=== PATIENT | female | born 1965 | race Asian ===

== ENCOUNTER 2016-10-05 09:44 | Emergency (ER) | payer BC ==
[~2016-10-05] VITALS: Ht 175.3 cm; Wt 134.7 kg
[~2016-10-05 09:44] MED LIST: ASPIRIN ADULT L81 MG OR; BENICAR HCT1 TA1 PO; CELE200C2 PO; CLARITIN10 MG PO; HCTZ PO; HYDR25TA15 PO; HYDR5TAB9 PO; METO100T37 PO; PERCOCET1 TA1 PO; TRAM50TA PO; TRIBENZO1 PO; ZANTAC 75 PO
[2016-10-05 09:54] VITALS: BP 181/91; TEMP 98.3
[2016-10-05] MEDS ORDERED: TRIBENZO1 PO (09:57)
[2016-10-05] MEDS ORDERED: TRAM50TA PO (09:57)
[2016-10-05] MEDS ORDERED: LIPITOR10 MG PO (09:58)
[2016-10-05] MEDS ORDERED: DIPH25CA90 PO (09:59)
== END 2016-10-05 10:30 | disposition home or self-care (01) ==
LOC: ED 09:44
DX: T78.40XA Allergy, unspecified, initial encounter (principal)
CPT/HCPCS: 96372; 99282; J1100

== ENCOUNTER 2020-02-27 10:04 | Outpatient (CLI) | payer BC ==
[~2020-02-27 10:04] MED LIST changes: +DIPH25CA90 PO; +LIPITOR10 MG PO
== END 2020-02-27 23:31 | disposition home or self-care (01) ==
LOC: RAD 10:04
DX: M54.5 Low back pain (principal)

== ENCOUNTER 2020-04-04 08:02 | Outpatient (CLI) | payer BC | END 2020-04-04 21:30 | disposition home or self-care (01) | LOC: RESP 08:02 | DX: R07.9 Chest pain, unspecified (principal); R94.31 Abnormal electrocardiogram [ECG] [EKG] | CPT/HCPCS: 93225 ==

== ENCOUNTER 2020-04-05 16:23 | Outpatient (CLI) | payer BC | END 2020-04-05 20:27 | disposition home or self-care (01) | LOC: RESP 16:23 | DX: R07.9 Chest pain, unspecified (principal); R94.31 Abnormal electrocardiogram [ECG] [EKG] | CPT/HCPCS: 93225 ==

== ENCOUNTER 2020-05-04 08:02 | Outpatient (CLI) | payer BC | END 2020-05-04 18:54 | disposition home or self-care (01) | LOC: CT 08:02 | PROVIDERS: ATTEND Orthopaedic Surgery | DX: M54.5 Low back pain (principal); M51.37 Other intervertebral disc degeneration, lumbosacral region; M54.16 Radiculopathy, lumbar region ==

== ENCOUNTER 2020-05-17 14:36 | Outpatient (CLI) | payer BC | END 2020-05-17 19:28 | disposition home or self-care (01) | LOC: RESP 14:36 | PROVIDERS: ATTEND Internal Medicine Cardiovascular Disease | DX: R07.9 Chest pain, unspecified (principal); R00.2 Palpitations ==

== ENCOUNTER 2021-04-28 09:09 | Emergency (ER) | payer BC ==
[~2021-04-28] VITALS: Ht 175.3 cm; Wt 141.1 kg
[2021-04-28 09:24] VITALS: TEMP 97.8
[2021-04-28 13:27] VITALS: BP 151/82
== END 2021-04-28 13:27 | disposition home or self-care (01) ==
LOC: ED 09:09
DX: S16.1XXA Strain of muscle, fascia and tendon at neck level, initial encounter (principal); S39.012A Strain of muscle, fascia and tendon of lower back, initial encounter; M25.512 Pain in left shoulder; V49.40XA Driver injured in collision with unspecified motor vehicles in traffic accident, initial encounter; Y92.89 Other specified places as the place of occurrence of the external cause
CPT/HCPCS: 99283

== ENCOUNTER 2021-06-08 17:39 | Emergency (ER) | payer BC ==
[~2021-06-08] VITALS: Ht 175.3 cm; Wt 140.2 kg
[2021-06-08 20:52] VITALS: BP 136/73; TEMP 99.5
== END 2021-06-08 20:52 | disposition home or self-care (01) ==
LOC: ED 17:39
DX: J20.9 Acute bronchitis, unspecified (principal); J02.9 Acute pharyngitis, unspecified; M79.18 Myalgia, other site; U07.1 COVID-19
CPT/HCPCS: 87502; 87635; 87651; 90471; 99283; J0696; J1885; U0003

== ENCOUNTER 2022-01-20 08:48 | Outpatient (CLI) | payer BC | END 2022-01-20 18:48 | disposition home or self-care (01) | LOC: US 08:48 | PROVIDERS: ATTEND Internal Medicine | DX: R79.89 Other specified abnormal findings of blood chemistry (principal) ==

== ENCOUNTER 2022-06-12 09:06 | Outpatient (CLI) | payer BC ==
[2022-06-12 09:37] LABS: POTASSIUM 3.6 mmol/L (3.6-5.2)
== END 2022-06-12 18:58 | disposition home or self-care (01) ==
LOC: LABW 09:06
PROVIDERS: ATTEND Internal Medicine Cardiovascular Disease
DX: I50.9 Heart failure, unspecified (principal)
CPT/HCPCS: 36415; 80048; 83880

== ENCOUNTER 2022-07-25 14:17 | Outpatient (CLI) | payer BC | END 2022-07-25 18:58 | disposition home or self-care (01) | LOC: RAD 14:17 | PROVIDERS: ATTEND Nurse Practitioner Family | DX: M54.2 Cervicalgia (principal) ==